=== PATIENT | female | born 1985 | race American Indian/Alaskan Native ===

== ENCOUNTER 2018-10-04 12:18 | Outpatient (CLI) | payer BC | END 2018-10-04 15:02 | disposition home or self-care (01) | LOC: LAB 12:18 → TRG 14:40 → LAB 15:02 | PROVIDERS: ATTEND Obstetrics & Gynecology | DX: O36.0130 Maternal care for anti-D [Rh] antibodies, third trimester, not applicable or unspecified (principal); Z3A.28 28 weeks gestation of pregnancy | CPT/HCPCS: 86850; 86900; 86901; J2790 ==

== ENCOUNTER 2018-12-08 15:34 | Inpatient (IN) | payer BC ==
[2018-12-08] MEDS ORDERED: MINERAL OIL PO PRN (16:54)
[2018-12-08] MEDS ORDERED: CERVIDIL VG ONE (16:54)
[2018-12-08] MEDS ORDERED: SUBLIMAZE IV PRN (16:54)
[2018-12-08] MEDS ORDERED: AMPICILLIN/NS 2 GM/100 ML 2 GM/100 ML BAG IV ONE (16:54)
[2018-12-08] MEDS ORDERED: XYLOCAINE 2% INFILTRATI ONE (16:54)
[2018-12-08] MEDS ORDERED: NARCAN 0.4 MG/1 ML IV PRN (16:54)
[2018-12-08] MEDS ORDERED: BRETHINE SUB-Q PRN (16:54)
[2018-12-08] MEDS ORDERED: BRETHINE IVP PRN (16:54)
[2018-12-08] MEDS ORDERED: STADOL IV PRN (16:54)
[2018-12-08] MEDS ORDERED: ZOFRAN IV PRN (16:54)
[2018-12-08] MEDS ORDERED: PITOCin/NS 20 UNIT/1000ML DRIP 20 UNITS/1,000 ML BAG IV SCH (17:00)
[2018-12-08 17:14] LABS: Hematocrit 34.1 % (30.3-42.9); Hemoglobin 11.4 gm/dl (10.1-14.3); Mean Corpuscular HGB Conc 33 % (30-34); Mean Corpuscular Volume 87 fl (79-97); Platelet Count 273 K/mm3 (140-440); Red Blood Count 3.94 M/mm3 (3.65-5.03); Red Cell Distribution Width 16.4 % (13.2-15.2)
[2018-12-08 17:25] LABS: Bacteria,Urine 3+ /HPF (Negative); Bilirubin,Urine NEG (Negative); Blood,Urine NEG (Negative); Color,Urine Yellow (Yellow); Hyaline Casts,Urine 3 /LPF; Mucus,Urine 2+ /HPF; Urobilinogen,Urine < 2.0 mg/dL (<2.0)
[2018-12-08 17:32] LABS: Alanine Aminotransferase 11 units/L (7-56)
--- NOTE | 2018-12-08 17:37 | History and Physical Report ---
History of Present Illness Date of examination: 12/08/18 Chief complaint: sent from clinic History of present illness: Pt is a 33 year old female primigravida GISELLA Past History Past Medical History: other (obesity ) Past Surgical History: no surgical history [employer] History: fibroids, herpes Family/Genetic History: hypertension Social history: - Obstetrical History Expected Date of Delivery: 12/22/18 Actual Gestation: 38 Week(s) 1 Day(s) : 1 Medications and Allergies Allergies Allergy/AdvReac Type Severity Reaction Status Date / Time quinine AdvReac Severe Itching Verified 11/23/18 16:05 Active Meds: Active Medications Butorphanol Tartrate (Stadol) 2 mg IV Q2H PRN PRN Reason: Pain , Severe (7-10) Ephedrine Sulfate (Ephedrine Sulfate) 10 mg IV Q2M PRN PRN Reason: Hypotension Fentanyl (Sublimaze) 100 mcg IV Q2H PRN PRN Reason: Labor Pain Hydralazine HCl (Apresoline) 5 mg IV Q30MIN PRN PRN Reason: Hypertension Ampicillin Sodium (Ampicillin/Ns 1 Gm/50 Ml) 1 gm in 50 mls @ 100 mls/hr IV Q4HR SIGRID; Protocol Ampicillin Sodium (Polycillin/Ns 2 Gm/100 Ml) 2 gm in 100 mls @ 100 mls/hr IV ONCE ONE; Protocol Stop: 12/08/18 17:53 Lactated Ringer's (Lactated Ringers) 1,000 mls @ 125 mls/hr IV DIRECT SIGRID Oxytocin/Sodium Chloride (Pitocin/Ns 20 Unit/1000ml Drip) 20 units in 1,000 mls @ 125 mls/hr IV DIRECT SIGRID Mineral Oil (Mineral Oil) 30 ml PO QHS PRN PRN Reason: Constipation Naloxone HCl (Narcan 0.4 Mg/1 Ml) 0.1 mg IV Q2MIN PRN PRN Reason: Res Rate </= 8 or 02 SAT < 92% Ondansetron HCl (Zofran) 4 mg IV Q8H PRN PRN Reason: Nausea And Vomiting Terbutaline Sulfate (Brethine) 0.25 mg SUB-Q ONCE PRN PRN Reason: Hyperstimulation/Hypertonicity Terbutaline Sulfate (Brethine) 0.25 mg IVP ONCE PRN PRN Reason: Hyperstimulation/Hypertonicity Review of Systems All systems: negative - Vital Signs Vital signs: Vital Signs Pulse BP 86 158/110 12/08/18 16:32 12/08/18 16:32 Temp Pulse Resp BP Pulse Ox 97.7 F 78 20 137/89 12/08/18 16:37 12/08/18 17:32 12/08/18 16:37 12/08/18 17:32 - Physical Exam Breasts: Positive: deferred Abdomen: Positive: soft (obese, gravid ) Genitourinary (Female): Positive: normal external genitalia Uterus: Positive: enlarged (gravid ) Extremities: Positive: normal - Obstetrical FHR: category 2 Uterine Contraction Monitor Mode: External Cervical Dilatation: 0 Results Result Diagrams: 12/08/18 16:50 12/08/18 16:50 Abnormal lab results 12/08/18 12/08/18 12/08/18 Range/Units 16:50 16:50 Unknown RDW 16.4 H (13.2-15.2) % Creatinine 0.5 L (0.7-1.2) mg/dL Urine WBC (Auto) 13.0 H (0.0-6.0) /HPF U Epithel Cells (Auto) 87.0 H (0-13.0) /HPF All other labs normal. Assessment and Plan A: IUP at 38 wks Gestational Hypertension Obesity Fibroid Uterus AMA Rh Negative GBS Negative P: Admit to labor and delivery for induction of labor PIH labs Routine intrapartum care
[2018-12-08 18:02] LABS: Uric Acid 6.1 mg/dL (3.5-7.6)
[2018-12-08] MEDS: LACTATED RINGERS 1,000 ML IV SCH (20:02)
[2018-12-08] MEDS ORDERED: AMPICILLIN/NS 1 GM/50 ML 1 GM/50 ML BAG IV SCH (20:59)
[2018-12-09] MEDS: LACTATED RINGERS 1,000 ML IV SCH ×4 (02:28→22:10)
--- NOTE | 2018-12-09 09:18 | Progress Note ---
Assessment and Plan A: IUP at 38w1d Gestational Hypertension undergoing induction of labor; s/p cervidil overnight Obesity Fibroid Uterus AMA Rh Negative GBS Negative P: Continue induction of labor with cytotec Closely monitor maternal and status Subjective - Subjective Date of service: 12/09/18 Principal diagnosis: Gestational HTN undergoing induction of labor Interval history: Pt s/p cervidil overnight. She is somewhat uncomfortable with sporadic contractions. Patient reports: no new complaints Objective - Vital Signs Vital Signs: Vital Signs - 12hr 12/08/18 12/08/18 12/08/18 21:42 22:41 23:02 Temperature Pulse Rate 81 75 76 Respiratory Rate Blood Pressure 157/102 166/101 145/94 Blood Pressure [Right] 12/08/18 12/08/18 12/09/18 23:06 23:40 00:42 Temperature 98.3 F Pulse Rate 89 82 Respiratory 18 18 Rate Blood Pressure 147/95 135/95 Blood Pressure 145/94 135/95 [Right] 12/09/18 12/09/18 12/09/18 01:40 02:40 03:40 Temperature Pulse Rate 71 75 88 Respiratory Rate Blood Pressure 134/91 156/100 144/99 Blood Pressure [Right] 12/09/18 12/09/18 12/09/18 04:40 05:40 06:19 Temperature 98.5 F Pulse Rate 79 76 75 Respiratory 18 Rate Blood Pressure 146/94 175/97 151/96 Blood Pressure 146/94 [Right] 12/09/18 12/09/18 06:40 07:40 Temperature Pulse Rate 78 73 Respiratory Rate Blood Pressure 137/99 138/97 Blood Pressure [Right] - Exam Breasts: deferred Abdomen: Present: soft (obese, gravid ) Uterus: Present: normal (gravid ) FHR: auscultation normal Uterine Contraction Monitor Mode: External Extremities: normal - Labs Labs: Abnormal Labs 12/08/18 12/08/18 12/08/18 16:50 16:50 Unknown RDW 16.4 H Creatinine 0.5 L Lactate Dehydrogenase 207 H Urine WBC (Auto) 13.0 H U Epithel Cells (Auto) 87.0 H Laboratory Results - last 24 hr 12/08/18 12/08/18 12/08/18 16:50 16:50 16:50 WBC 6.9 RBC 3.94 Hgb 11.4 Hct 34.1 MCV 87 MCH 29 MCHC 33 RDW 16.4 H Plt Count 273 Creatinine 0.5 L Estimated GFR > 60 Uric Acid 6.1 AST 17 ALT 11 Lactate Dehydrogenase 207 H Urine Color Urine Turbidity Urine pH Ur Specific [place] Urine Protein Urine Glucose (UA) Urine Ketones Urine Blood Urine Nitrite Urine Bilirubin Urine Urobilinogen Ur Leukocyte Esterase Urine WBC (Auto) Urine RBC (Auto) U Epithel Cells (Auto) Urine Bacteria (Auto) Hyaline Casts Urine Mucus Urine Yeast (Budding) Blood Type A NEGATIVE Antibody Screen Positive Antibody Identification Anti-D (Passively Aquired) 12/08/18 Unknown WBC RBC Hgb Hct MCV MCH MCHC RDW Plt Count Creatinine Estimated GFR Uric Acid AST ALT Lactate Dehydrogenase Urine Color Yellow Urine Turbidity Turbid Urine pH 6.0 Ur Specific [place] 1.023 Urine Protein 30 mg/dl Urine Glucose (UA) Neg Urine Ketones Neg Urine Blood Neg Urine Nitrite Neg Urine Bilirubin Neg Urine Urobilinogen < 2.0 Ur Leukocyte Esterase Mod Urine WBC (Auto) 13.0 H Urine RBC (Auto) 6.0 U Epithel Cells (Auto) 87.0 H Urine Bacteria (Auto) 3+ Hyaline Casts 3 Urine Mucus 2+ Urine Yeast (Budding) 2+ Blood Type Antibody Screen Antibody Identification
[2018-12-09] MEDS ORDERED: CYTOTEC VG ONE (10:00)
[2018-12-09] MEDS: CYTOTEC VG SCH ×2 (15:27→19:56)
[2018-12-09] MEDS: APRESOLINE IV PRN (19:54)
[2018-12-09] MEDS ORDERED: PEPCID IV ONE (21:16)
[2018-12-09] MEDS ORDERED: BICITRA PO ONE (21:16)
[2018-12-09] MEDS ORDERED: REGLAN IV ONE (21:16)
[2018-12-09] MEDS ORDERED: NUBAIN IV PRN (21:45)
[2018-12-09] MEDS ORDERED: NARCAN 0.4 MG/1 ML IV PRN (21:45)
[2018-12-09] MEDS ORDERED: ZOFRAN IV PRN (21:45)
[2018-12-09] MEDS ORDERED: PHENERGAN PO PRN (21:45)
[2018-12-09] MEDS ORDERED: BENADRYL IV PRN (21:45)
[2018-12-09] MEDS ORDERED: PHENERGAN PR PRN (21:45)
--- NOTE | 2018-12-09 21:50 | Anesthesia Consultation ---
Anesthesia Consult and Med Hx Date of service: 12/09/18 - Airway Anesthetic Teeth Evaluation: Chipped, Caps ROM Head & Neck: Adequate Mental/Hyoid Distance: Adequate Mallampati Class: Class III Intubation Access Assessment: Possibly Difficult - Pulmonary Exam CTA: Yes - Cardiac Exam Cardiac Exam: RRR - Pre-Operative Health Status ASA Pre-Surgery Classification: ASA3, Emergency Proposed Anesthetic Plan: Epidural, Spinal - Pulmonary Hx Smoking: No Hx Asthma: No Hx Respiratory Symptoms: No SOB: No COPD: No Home Oxygen Therapy: No Hx Pneumonia: No Hx Sleep Apnea: No - Cardiovascular System Hx Hypertension: Yes (PIH) Hx Coronary Artery Disease: No Hx Heart Attack/AMI: No Hx Angina: No Hx Percutaneous Transluminal Coronary Angioplasty (PTCA): No Hx Cardia Arrhythmia: No Hx Pacemaker: No Hx Internal Defibrillator: No Hx Heart Murmur: No Hx Peripheral Vascular Disease: No - Central Nervous System Hx Neuromuscular Disorder: No Hx Seizures: No CVA: No Hx Back Pain: No Hx Psychiatric Problems: No - Gastrointestinal Hx Ulcer: No Hx Gastroesophageal Reflux Disease: No - Endocrine Hx Renal Disease: No Hx End Stage Renal Disease: No Hx Cirrhosis: No Hx Liver Disease: No Hx Insulin Dependent Diabetes: No Hx Non-Insulin Dependent Diabetes: No Hx Thyroid Disease: No Hx Hypothyroidism: No Hx Hyperthyroidism: No - Hematic Hx Anemia: No Hx Sickle Cell Disease: No - Other Systems Hx Alcohol Use: No Hx Substance Use: No Hx Cancer: No Hx Obesity: Yes
--- NOTE | 2018-12-09 21:50 | Post Anesthesia Evaluation ---
- Post Anesthesia Evaluation Patient Participated: Yes Airway Patent: Yes Stable Respiratory Function: Yes Nausea/Vomiting: No Temp > 96.8F: Yes Pain Manageable: Yes Adequeate Hydration: Yes Anesthesia Complications: No Block Receding Appropriately: Yes Patient on Ventilator: No
[2018-12-09] MEDS ORDERED: SUBLIMAZE ONE (21:58)
[2018-12-09] MEDS ORDERED: ANCEF/STERILE WATER 2 GM/20 ML IV NR (22:00)
[2018-12-09] MEDS ORDERED: SODIUM CHLORIDE FLUSH SYRINGE 10 ML IV PRN (22:00)
[2018-12-09] MEDS ORDERED: NACL 0.9% IR ONE (22:30)
[2018-12-09] MEDS ORDERED: WATER FOR IRRIG STERILE IR ONE (22:30)
[2018-12-09] MEDS ORDERED: TORADOL ONE (23:08)
--- NOTE | 2018-12-10 00:02 | Operative Report ---
Operative Report Operative Report: Date of procedure: December 09, 2018 Preoperative diagnosis: 1) IUP at 38w1d who 2) Severe Preeclampsia 3) Obesity 4) Fibroid uterus Postoperative diagnosis: Same Procedure: Primary low transverse section Surgeon: Amelie Griffin M.D. Anesthesia: Regional Findings: 1) Viable male , Apgars 8 and 9 , weight 2766g, (6 lb 1.5 oz), cephalic in occiput posterior position. Tight nuchal cord x 1 2) Two 6-7 cm subserosal fibroids noted 2) Normal-appearing ovaries and tubes Estimated blood loss: 700 mL IV fluids:1400 mL Urine output: 100 mL, clear at the end of the procedure Drains: Mills to gravity Specimens: Placenta to pathology Complications: None. Counts correct x3 Disposition: Stable to PACU Indication for procedure: Pt is a 33 year old primigravida at 38 weeks 1 day who was initially admitted for induction of labor secondary to gestational hypertension. The patient had a sudden increase in blood pressures 160s over 100s with little change after multiple doses of hydralazine. The decision was made to proceed with delivery as the patient was dilated only 1 cm. Operation in detail: After the risks, benefits, alternatives and complications were explained to the patient she gave informed consent for the procedure. She was subsequently taken to the operating room where regional anesthesia was noted to be adequate. She was subsequently placed in the dorsal supine position with leftward tilt and prepped and draped in a normal sterile fashion. heart tones were noted to be in the 160s prior to incision. A timeout was performed. A Pfannenstiel skin incision was made with the knife and carried down to the layer of the fascia with the Bovie. The fascia was incised in the midline and the fascial incision was extended bilaterally with the Bovie. Attention was then turned to the superior aspect of the incision which was grasped with two Kochers, tented up, and dissected off the rectus muscles. Attention was then turned to the inferior aspect of the incision which was grasped with two Kochers, tented up and dissected off the rectus muscles. The rectus muscles were then in the midline and partially transected for adequate visualization. The peritoneum was then entered bluntly. The peritoneal incision was extended with good visualization of the bladder. The peritoneal incision was then stretched. An Randy self-retaining retractor was placed for visualization. The bladder blade was placed. The vesicouterine peritoneum was grasped with smooth pickups and incised with Metzenbaum scissors. Metzenbaum scissors were used to extend the incision bilaterally. The bladder flap was then created digitally and the bladder blade was replaced. A transverse incision was made in the lower uterine segment with a knife and extended bilaterally with the bandage scissors. The head was delivered without difficulty followed by shoulders and body. was bulb suctioned at delivery. The cord was clamped and cut and the was handed to NICU staff in attendance. Cord blood was collected. The placenta was then delivered manually. The uterus was then cleared of all clots and debris. The hysterotomy was then reapproximated with 0 Vicryl in a running locked fashion. A second layer of the same suture was used in imbricating fashion. The hysterotomy was inspected and hemostasis was noted. The Randy self-retaining retractor was removed. The gutters were irrigated and cleared of all clots and debris. The hysterotomy was again inspected and noted to be hemostatic. Surgicel was placed over the hysterotomy. An attempt was made to reapproximate the peritoneum and rectus muscles. However there was too much tension on the tissue. The fascia was reapproximated with 0 Vicryl in a running fashion. The subcutaneous tissue was reapproximated with 3-0 Vicryl in a running fashion. The skin was reapproximated with 4-0 Vicryl in a running fashion. The incision was then covered with steri strips and a pressure dressing. The procedure was then ended. The patient tolerated the procedure well and was taken to the PACU in stable condition. All instrument, lap, and needle counts were correct 3.
--- NOTE | 2018-12-10 00:02 | Procedure Note ---
OB Delivery Note - Delivery Date of Delivery: 12/10/18 Surgeon: KVNG STRANGE Estimated blood loss: other (700 mL) - Section Preop diagnosis: other (Severe Preeclampsia, worsening remote from delivery ) Postop diagnosis: same section procedure: section, primary low transverse Disposition: PACU Narrative: Please see operative report. - A at 1 minute: 8 at 5 minutes: 9 Gender: Male (2766g (6lb 1.5 oz) @ 2259 pm)
[2018-12-10] MEDS ORDERED: MAGNESIUM SULFATE 4GM/100ML 4 GM/100 ML BAG IV ONE (00:10)
[2018-12-10] MEDS ORDERED: MAGNESIUM SULFATE 40GM/1000ML 40 GM/1,000 ML BAG IV SCH (01:00)
[2018-12-10] MEDS: DILAUDID IV PRN ×5 (01:31→23:25)
[2018-12-10] MEDS: APRESOLINE IV PRN ×3 (02:18→19:46)
[2018-12-10] MEDS ORDERED: NORMODYNE IV ONE (02:52)
--- NOTE | 2018-12-10 09:17 | Progress Note ---
Assessment and Plan A/P POD0 s/p primary csec on mag-continue for 24 hrs uop appropriate cbc now mag levle added labetolol 100 mg po bid Subjective - Subjective Date of service: 12/10/18 Principal diagnosis: Gestational HTN undergoing induction of labor Patient reports: appetite normal, voiding normally, pain well controlled : doing well Objective - Vital Signs Latest vital signs: Vital Signs Temp Pulse Resp BP BP Pulse Ox 12/10/18 09:08 105 H 153/89 12/10/18 09:07 110 H 162/90 12/10/18 08:56 103 H 98 12/10/18 08:51 107 H 97 12/10/18 08:46 95 H 97 12/10/18 08:41 99 H 97 12/10/18 08:36 99 H 163/101 12/10/18 08:09 105 H 97 12/10/18 08:06 103 H 127/85 12/10/18 08:04 105 H 97 12/10/18 07:59 103 H 97 12/10/18 07:54 103 H 97 12/10/18 07:49 106 H 97 12/10/18 07:48 104 H 18 94 12/10/18 07:44 100 H 96 12/10/18 07:42 101 H 92 12/10/18 07:39 100 H 95 12/10/18 07:36 96 H 136/83 92 12/10/18 07:34 98 H 97 12/10/18 07:29 99 H 97 12/10/18 07:25 99 H 94 12/10/18 07:24 99 H 95 12/10/18 07:19 97 H 97 12/10/18 07:14 95 H 96 12/10/18 07:13 101 H 92 12/10/18 07:09 97 H 96 12/10/18 07:08 99 H 92 12/10/18 07:05 97 H 128/83 12/10/18 07:04 98 H 96 12/10/18 07:01 98 H 90 12/10/18 06:59 96 H 97 12/10/18 06:55 100 H 93 12/10/18 06:54 98 H 97 12/10/18 06:53 96 H 137/85 12/10/18 06:49 100 H 96 12/10/18 06:44 99 H 96 12/10/18 06:39 101 H 97 12/10/18 06:36 18 12/10/18 06:34 97 H 98 12/10/18 06:29 98 H 98 12/10/18 06:24 95 H 98 12/10/18 06:22 93 H 158/100 12/10/18 06:19 94 H 98 12/10/18 06:14 93 H 98 12/10/18 06:09 98 H 97 12/10/18 06:04 99 H 98 12/10/18 05:59 95 H 97 12/10/18 05:54 98 H 98 12/10/18 05:52 93 H 153/96 12/10/18 05:49 96 H 98 12/10/18 05:44 96 H 98 12/10/18 05:39 95 H 98 12/10/18 05:34 93 H 98 12/10/18 05:29 96 H 98 12/10/18 05:24 100 H 98 12/10/18 05:22 93 H 156/96 12/10/18 05:19 100 H 98 12/10/18 05:14 97 H 98 12/10/18 05:09 90 99 12/10/18 05:05 102 H 94 12/10/18 05:04 92 H 98 12/10/18 04:59 94 H 98 12/10/18 04:54 97 H 99 12/10/18 04:52 91 H 145/94 12/10/18 04:49 94 H 98 12/10/18 04:44 93 H 99 12/10/18 04:39 97 H 99 12/10/18 04:34 100 H 98 12/10/18 04:29 101 H 98 12/10/18 04:24 96 H 98 12/10/18 04:22 96 H 149/92 12/10/18 04:19 99 H 98 12/10/18 04:14 94 H 98 12/10/18 04:09 100 H 98 12/10/18 04:04 99 H 98 12/10/18 03:59 100 H 97 12/10/18 03:54 95 H 97 12/10/18 03:52 95 H 141/87 12/10/18 03:49 97 H 98 12/10/18 03:44 98 H 97 12/10/18 03:39 99 H 96 12/10/18 03:34 97 H 97 12/10/18 03:29 103 H 97 12/10/18 03:24 95 H 98 12/10/18 03:19 97 H 98 12/10/18 03:17 98 H 133/81 12/10/18 03:14 97 H 96 12/10/18 03:09 94 H 97 12/10/18 03:06 93 H 144/84 12/10/18 03:04 97 H 98 12/10/18 03:01 111 H 162/94 12/10/18 02:59 111 H 98 12/10/18 02:58 108 H 157/95 12/10/18 02:56 107 H 157/95 12/10/18 02:54 108 H 98 12/10/18 02:51 108 H 174/101 12/10/18 02:49 105 H 98 12/10/18 02:46 112 H 180/106 12/10/18 02:44 110 H 98 12/10/18 02:43 110 H 173/104 12/10/18 02:39 110 H 98 12/10/18 02:38 114 H 187/114 12/10/18 02:37 99.1 F 113 H 18 187/114 97 12/10/18 02:34 108 H 98 12/10/18 02:31 103 H 158/102 12/10/18 02:29 105 H 99 12/10/18 02:24 100 H 98 12/10/18 02:18 100 H 181/108 12/10/18 02:14 100 H 181/108 12/10/18 02:01 20 12/10/18 01:35 97.8 F 106 H 22 155/97 100 12/10/18 01:31 20 12/10/18 01:15 108 H 24 145/90 100 12/10/18 01:00 113 H 22 154/103 100 12/10/18 00:45 114 H 23 140/100 99 12/10/18 00:30 118 H 21 138/94 99 12/10/18 00:25 116 H 22 135/94 100 12/10/18 00:20 98.7 F 120 H 20 131/88 100 12/09/18 21:57 89 159/102 12/09/18 21:49 87 172/103 12/09/18 21:27 93 H 141/90 12/09/18 20:57 97 H 161/101 12/09/18 20:42 91 H 157/98 12/09/18 20:39 85 159/98 12/09/18 20:27 87 157/107 12/09/18 20:25 78 169/99 12/09/18 20:12 73 173/108 12/09/18 19:54 80 163/100 12/09/18 19:50 98.4 F 20 12/09/18 19:45 80 163/100 12/09/18 19:41 71 167/111 12/09/18 18:40 73 169/97 12/09/18 17:40 72 136/87 12/09/18 16:47 81 145/94 12/09/18 14:40 95 H 140/97 12/09/18 13:40 90 143/92 12/09/18 12:40 90 133/80 12/09/18 11:42 102 H 127/90 12/09/18 10:38 90 146/105 12/09/18 10:36 88 140/102 12/09/18 09:34 91 H 160/110 12/09/18 09:33 99 H 170/107 12/09/18 09:32 94 H 157/110 12/09/18 09:31 97 H 170/105 Intake and Output 12/09/18 12/10/18 12/10/18 23:59 07:59 15:59 Intake Total 2212.5 Output Total 100 350 Balance 2112.5 -350 Intake: IV 2212.5 Lactated Ringers 1,000 ml 812.5 @ 125 mls/hr IV DIRECT SIGRID Rx#:[id number] Output: Urine 100 350 Indwelling Catheter 250 Uretheral (Mills) 100 Other: Total, Output Amount 250 - Exam Breasts: Present: normal Cardiovascular: Present: Regular rate, Normal S1 Lungs: Present: Clear to auscultation, Normal air movement Abdomen: Present: normal appearance, soft, normal bowel sounds. Absent: distention, tenderness, guarding Vulva: both: normal Uterus: Present: normal, firm. Absent: bogginess Extremities: Present: normal Deep Tendon Reflex Grade: Normal +2 Incision: Present: normal, dry, dressed
[2018-12-10 09:40] LABS: Basophils # (Auto) 0.1 K/mm3 (0.0-0.1); Basophils % (Auto) 0.5 % (0.0-1.8); Eosinophils % (Auto) 0.2 % (0.0-4.3); Hematocrit 32.4 % (30.3-42.9); Hemoglobin 11.1 gm/dl (10.1-14.3); Lymphocytes # (Auto) 2.1 K/mm3 (1.2-5.4); Lymphocytes % (Auto) 16.3 % (13.4-35.0); Mean Corpuscular HGB Conc 34 % (30-34); Mean Corpuscular Volume 86 fl (79-97); Monocytes % (Auto) 7.4 % (0.0-7.3); Platelet Count 303 K/mm3 (140-440); Red Blood Count 3.76 M/mm3 (3.65-5.03); Red Cell Distribution Width 16.4 % (13.2-15.2)
[2018-12-10] MEDS: NORMODYNE PO SCH ×2 (10:34→19:45)
[2018-12-10] MEDS: LACTATED RINGERS 1,000 ML IV SCH (13:29)
[2018-12-11] MEDS: DILAUDID IV PRN ×2 (08:02→16:23)
--- NOTE | 2018-12-11 10:18 | Progress Note ---
Assessment and Plan - Patient Problems (1) Gestational hypertension Current Visit: Yes Status: Acute Plan to address problem: continue to monitor closely routine post op care Subjective - Subjective Date of service: 12/11/18 Principal diagnosis: Gestational HTN undergoing induction of labor Interval history: Patient states her pain is controlled. Mills has been removed. Has ambulated in the room Patient reports: appetite normal, pain well controlled, no flatus : doing well Objective - Vital Signs Latest vital signs: Vital Signs Temp Pulse Resp BP BP Pulse Ox 12/11/18 08:36 99.6 F 108 H 18 144/97 95 12/11/18 04:18 99.1 F 99 H 16 143/102 94 12/11/18 01:17 99.1 F 103 H 16 140/94 95 12/11/18 00:23 101 H 148/95 12/10/18 23:53 104 H 135/91 12/10/18 23:25 16 12/10/18 23:23 100 H 152/101 12/10/18 22:53 101 H 150/97 12/10/18 22:23 100 H 155/99 12/10/18 21:53 100 H 162/99 12/10/18 21:23 102 H 164/104 12/10/18 20:45 102 H 160/100 12/10/18 20:35 104 H 161/102 12/10/18 20:25 105 H 163/104 12/10/18 20:15 102 H 158/101 12/10/18 20:05 100 H 154/99 12/10/18 19:55 100 H 159/100 12/10/18 19:46 93 H 176/110 12/10/18 19:45 93 H 164/104 12/10/18 19:35 93 H 176/110 12/10/18 19:22 88 169/108 12/10/18 19:16 90 182/107 12/10/18 19:10 90 182/107 12/10/18 19:07 91 H 177/108 12/10/18 18:36 88 163/98 12/10/18 18:06 86 156/98 12/10/18 17:36 92 H 144/93 12/10/18 17:08 97.7 F 92 H 160/101 12/10/18 17:01 18 12/10/18 16:50 93 H 160/106 12/10/18 16:49 92 H 158/102 12/10/18 16:36 96 H 146/92 12/10/18 16:06 93 H 136/84 12/10/18 15:36 101 H 143/89 12/10/18 15:06 93 H 145/92 12/10/18 14:36 99 H 138/83 12/10/18 14:06 101 H 143/89 12/10/18 13:36 99 H 137/85 12/10/18 13:06 107 H 133/77 12/10/18 12:36 99 H 135/84 12/10/18 12:19 98.3 F 18 100 12/10/18 12:15 106 H 126/79 12/10/18 12:06 105 H 136/84 12/10/18 11:36 100 H 139/86 12/10/18 11:07 107 H 152/89 12/10/18 10:36 100 H 157/95 12/10/18 10:35 109 H 161/95 12/10/18 10:34 109 H 161/95 Intake and Output 12/10/18 12/11/18 12/11/18 22:59 06:59 14:59 Intake Total 839.583 Output Total 2600 700 Balance -2600 139.583 Intake: IV 539.583 MAGNESIUM SULFATE 40GM/ 539.583 1000ML 40 gm In 1,000 ml @ 1 GM/HR 25 mls/hr IV DIRECT SIGRID Rx#:[id number] Intake, Free Water 300 Output: Urine 2600 700 Indwelling Catheter 2600 200 Void 500 Other: Total, Output Amount 700 500 # Voids Void 1 - Exam Uterus: Present: normal Incision: Present: dressed - Labs Labs: Abnormal lab results 12/10/18 12/10/18 12/11/18 Range/Units 13:46 17:12 00:26 Magnesium 4.60 H 5.10 H 4.40 H (1.7-2.3) mg/dL 12/11/18 Range/Units 05:53 Magnesium 3.20 H (1.7-2.3) mg/dL
[2018-12-11] MEDS: NORMODYNE PO SCH ×2 (16:13→22:00)
[2018-12-11] MEDS ORDERED: PERCOCET 5/325 PO PRN (16:49)
[2018-12-11] MEDS: IBUPROFEN PO SCH (17:06)
[2018-12-12] MEDS: IBUPROFEN PO SCH ×6 (04:41→23:04)
[2018-12-12] MEDS: NORMODYNE PO SCH ×3 (04:43→23:04)
--- NOTE | 2018-12-12 09:42 | Discharge Summary ---
Providers - Providers Date of Admission: 12/08/18 19:04 Date of discharge: 12/13/18 Attending physician: KVNG STRANGE Primary care physician: KVNG STRANGE Hospitalization Reason for admission: active labor Delivery: Procedure: section, primary low transverse Discharge diagnosis: IUP at term delivered [place] baby: male Hospital course: Patient admitted for induction for elevated blood pressures. Had worsening of blood pressures during her intrapartum without cervical change. Primary was performed. Patient received magnesium . Remainer of uncomplicated. Condition at discharge: Good Disposition: DC-01 TO HOME OR SELFCARE - Discharge Diagnoses (1) Gestational hypertension Status: Acute Plan - Discharge Medications Prescriptions: Docusate Sodium [Colace] 100 mg PO BID PRN #60 capsule PRN Reason: Constipation Ibuprofen [Motrin] 800 mg PO Q8HR PRN #60 tablet PRN Reason: Pain, Mild (1-3) oxyCODONE /ACETAMINOPHEN [Percocet 5/325] 1 tab PO Q6HR PRN #30 tablet PRN Reason: Pain - Provider Discharge Summary Activity: no sex for 6 weeks, no heavy lifting 4 weeks, no strenuous exercise Diet: routine Instructions: routine Additional instructions: [] Smoking cessation referral if applicable(refer to patient education folder for contact #) [] Refer to [facility] Booklet Call your doctor immediately for: * Fever > 100.5 * Heavy vaginal bleeding ( >1 pad per hour) * Severe persistent headache * Shortness of breath * Reddened, hot, painful area to leg or breast * Drainage or odor from incision. * Keep incision clean and dry at all times and follow doctor's instructions regarding bathing/showering schedule appointment in 2 weeks for blood pressure and incision check - Follow up plan
--- NOTE | 2018-12-12 09:42 | Progress Note ---
Assessment and Plan - Patient Problems (1) Gestational hypertension Current Visit: Yes Status: Acute Plan to address problem: patient doing well discharge in am Subjective - Subjective Date of service: 12/12/18 Principal diagnosis: Gestational HTN undergoing induction of labor Interval history: Patient is doing well. Pain is controlled. She is tolerating a regular diet without difficulty. Voiding spontaneously. Patient reports: appetite normal, voiding normally, pain well controlled : doing well Objective - Vital Signs Latest vital signs: Vital Signs Temp Pulse Resp BP BP Pulse Ox 12/12/18 07:22 97.8 F 82 18 141/89 12/12/18 04:43 96 H 148/100 12/12/18 00:42 98.1 F 93 H 20 133/81 98 12/11/18 22:00 0 L 0/0 12/11/18 21:58 98 H 131/96 12/11/18 16:13 148 H 148/92 12/11/18 15:06 98.1 F 104 H 18 141/92 Intake and Output 12/11/18 12/12/18 12/12/18 22:59 06:59 14:59 Intake Total 360 480 Balance 360 480 Intake: Oral 360 480 Other: Total, Intake Amount 360 480 - Exam Abdomen: Present: soft Uterus: Present: firm Incision: Present: normal
[2018-12-13] MEDS: IBUPROFEN PO SCH ×2 (05:00→12:45)
[2018-12-13] MEDS: NORMODYNE PO SCH (10:34)
[2018-12-14 18:00] VITALS: BP 146/90
== END 2018-12-13 14:45 | disposition home or self-care (01) | DRG 788 ==
LOC: TRG 15:34 → LD 19:04 → TRG 19:04 → LD 12-09 22:16 → OB 12-11 01:38
PROVIDERS: ADMIT Obstetrics & Gynecology; ATTEND Obstetrics & Gynecology
PROC: 10D00Z1 Extraction of Products of Conception, Low, Open Approach (ICD-10-PCS; principal; 2018-12-09)
PROC: 3E0P7VZ Introduction of Hormone into Female Reproductive, Via Natural or Artificial Opening (ICD-10-PCS; 2018-12-09)
PROC: 3E0234Z Introduction of Serum, Toxoid and Vaccine into Muscle, Percutaneous Approach (ICD-10-PCS; 2018-12-12)
DX: O14.14 Severe pre-eclampsia complicating childbirth (principal); O99.214 Obesity complicating childbirth; O34.13 Maternal care for benign tumor of corpus uteri, third trimester; O69.1XX0 Labor and delivery complicated by cord around neck, with compression, not applicable or unspecified; O64.0XX0 Obstructed labor due to incomplete rotation of fetal head, not applicable or unspecified; O26.893 Other specified pregnancy related conditions, third trimester; D25.9 Leiomyoma of uterus, unspecified; Z3A.38 38 weeks gestation of pregnancy; Z37.0 Single live birth; Z67.11 Type A blood, Rh negative
CPT/HCPCS: 36415; 59025; 81001; 82565; 83615; 83735; 84450; 84460; 84550; 85025; 85027; 85461; 86592; 86850; 86870; 86900; 86901; 87086; 88307; 96360; 96361; 96365; 96366; 96367; 96368; 96372; 96374; 96376; G0378; J0360; J0690; J1170; J1885; J2405; J2590; J2765; J2790; J3010; J3475; J7120

== ENCOUNTER 2022-03-19 07:29 | Inpatient (IN) | payer BC, MEDICAID ==
[2022-03-19] MEDS ORDERED: LACTATED RINGERS 1,000 ML IV ONE (10:40)
--- NOTE | 2022-03-19 11:22 | History and Physical Report ---
History of Present Illness Date of examination: 03/19/22 Date of admission: March 19, 2022 Chief complaint: Leakage of fluid History of present illness: 36y/o @ 36+2 weeks presents with gross rupture of membranes and regular uterine contractions. The patient course is complicated by advanced maternal age, previous , history preeclampsia, and gestational diabetes. GBS status is unknown Past History Past Medical History: other (gestational diabetes) Past Surgical History: section Social history: - Obstetrical History Expected Date of Delivery: 04/14/22 Actual Gestation: 36 Week(s) 2 Day(s) : 2 Para: 1 Hx # Term Pregnancies: 1 Number of Pregnancies: 0 Spontaneous Abortions: 0 Induced : 0 Number of Living Children: 1 Medications and Allergies Allergies Allergy/AdvReac Type Severity Reaction Status Date / Time quinine AdvReac Severe Itching Verified 03/19/22 08:46 Home Medications Medication Instructions Recorded Confirmed Last Taken Type Docusate Sodium [Colace] 100 mg PO BID PRN #60 capsule 12/12/18 Unknown Rx Ibuprofen [Motrin] 800 mg PO Q8HR PRN #60 tablet 12/12/18 Unknown Rx oxyCODONE /ACETAMINOPHEN [Percocet 1 tab PO Q6HR PRN #30 tablet 12/12/18 Unknown Rx 5/325] Active Meds: Active Medications Lactated Ringer's (Lactated Ringers) 1,000 mls @ 999 mls/hr IV BOLUS ONE Stop: 03/19/22 11:40 Review of Systems All systems: negative Genitourinary: leakage of fluid, contractions - Vital Signs Vital signs: Vital Signs Pulse Pulse Ox 112 H 100 03/19/22 08:14 03/19/22 08:14 Temp Pulse Resp BP Pulse Ox 91 H 137/81 100 03/19/22 11:20 03/19/22 11:10 03/19/22 11:20 - Physical Exam Breasts: Positive: deferred Cardiovascular: Regular rate Lungs: Positive: Clear to auscultation Abdomen: Positive: normal appearance - Obstetrical Cervical Dilatation: 2 Results Result Diagrams: 03/19/22 11:22 03/19/22 11:22 Abnormal lab results 03/19/22 Range/Units 08:30 Membranes Rupture Positive A (Negative) All other labs normal. Assessment and Plan - Patient Problems (1) Spontaneous rupture of amniotic membranes Current Visit: Yes Status: Acute Plan to address problem: admit for a repeat delivery (2) Previous section Current Visit: Yes Status: Acute
[2022-03-19 11:52] LABS: Basophils % (Auto) 0.1 % (0.0-1.8); Eosinophils % (Auto) 0.2 % (0.0-4.3); Hematocrit 33.4 % (30.3-42.9); Lymphocytes # (Auto) 1.6 K/mm3 (1.2-5.4); Lymphocytes % (Auto) 13.4 % (13.4-35.0); Mean Corpuscular HGB Conc 33 % (30-34); Mean Corpuscular Volume 87 fl (79-97); Monocytes # (Auto) 0.7 K/mm3 (0.0-0.8); Monocytes % (Auto) 6.2 % (0.0-7.3); Platelet Count 282 K/mm3 (140-440); Red Blood Count 3.85 M/mm3 (3.65-5.03); Red Cell Distribution Width 14.8 % (13.2-15.2)
[2022-03-19] MEDS ORDERED: LACTATED RINGERS 1,000 ML IV SCH (12:00)
[2022-03-19] MEDS ORDERED: ceFAZolin/Water 2 GM/20 ML 2 GM/20 ML SYRINGE IV NR (12:00)
[2022-03-19] MEDS ORDERED: BICITRA ORAL LIQD 30ML PO ONE ×2 (12:00→17:00)
[2022-03-19] MEDS ORDERED: FAMOTIDINE 20 MG/2 ML INJ IV ONE ×2 (12:00→17:00)
[2022-03-19] MEDS ORDERED: OXYTOCIN DRIP 30 UNITS/500 ML BAG IV SCH ×2 (12:00→17:00)
[2022-03-19 12:11] LABS: Alanine Aminotransferase 9 units/L (7-56); Uric Acid 3.3 mg/dL (3.5-7.6)
[2022-03-19] MEDS ORDERED: METOCLOPRAMIDE 10 MG/2 ML INJ IV ONE ×2 (12:30→17:00)
[2022-03-19 12:50] LABS: Mucus,Urine 3+ /HPF
[2022-03-19 13:03] LABS: RBC,Urine > 182.0 /HPF (0.0-6.0); WBC,Urine > 182.0 /HPF (0.0-6.0)
[2022-03-19 13:04] LABS: Bilirubin,Urine Negative (Negative); Blood,Urine Large (Negative); Color,Urine Amber (Yellow); Urobilinogen,Urine < 2.0 mg/dL (<2.0)
[2022-03-19] MEDS ORDERED: NALOXONE 0.4 MG/1 ML INJ IV PRN ×2 (16:35→18:51)
[2022-03-19] MEDS ORDERED: MORPHINE 4 MG/1 ML INJ IV PRN ×2 (16:35→18:51)
[2022-03-19] MEDS ORDERED: ACETAMINOPHEN 325 MG TAB PO PRN (16:35)
[2022-03-19] MEDS ORDERED: ONDANSETRON 4 MG/2 ML INJ IV PRN ×2 (16:35→18:51)
[2022-03-19] MEDS ORDERED: KETOROLAC 30 MG/1 ML INJ IV PRN (16:35)
[2022-03-19] MEDS ORDERED: LANOLIN/ZINC/DIMETHICONE (LANSINOH) 7 GM TP PRN (16:35)
[2022-03-19] MEDS ORDERED: WITCH HAZEL/ GLYCERIN PAD TP PRN (16:35)
--- NOTE | 2022-03-19 16:43 | Procedure Note ---
OB Delivery Note - Delivery Date of Delivery: 03/19/22 Surgeon: AARON DONIS Estimated blood loss: other (757ml) - Section Preop diagnosis: repeat Postop diagnosis: same section procedure: section, repeat low transverse Disposition: PACU Complications: none - Infant A Gender: Female (Weight 6lbs 2oz)
[2022-03-19] MEDS ORDERED: propofoL 200 MG/20 ML VIAL IV ONE ×2 (17:27→17:41)
[2022-03-19] MEDS ORDERED: MIDAZOLAM 2 MG/2 ML INJ ONE (17:28)
[2022-03-19] MEDS ORDERED: KETAMINE/STERILE WATER 50 MG/ML SYRINGE ONE (17:28)
[2022-03-19] MEDS ORDERED: SUCCINYLCHOLINE CHLORIDE 200 MG/10 ML INJ MDV ONE (17:39)
[2022-03-19] MEDS ORDERED: ROCURONIUM 50 MG/5 ML INJ IV ONE (17:50)
[2022-03-19] MEDS ORDERED: SUGAMMADEX SODIUM 200 MG/2 ML VIAL IV ONE (17:59)
[2022-03-19] MEDS ORDERED: BUPIVACAINE/PF (0.5%) 5 MG/1 ML 30 ML VIAL INFILTRATI ONE (18:31)
[2022-03-19] MEDS ORDERED: SODIUM CHLORIDE 0.9% 100 ML ONE (18:31)
[2022-03-19] MEDS ORDERED: HYDROmorphone 1 MG/1 ML INJ IV PRN ×2 (18:51)
[2022-03-19] MEDS ORDERED: PROMETHAZINE 25 MG RECT SUPP PR PRN (18:51)
[2022-03-19] MEDS ORDERED: PROMETHAZINE 25 MG TAB PO PRN (18:51)
--- NOTE | 2022-03-19 18:53 | Operative Report ---
Operative Report Operative Report: Date of surgery: March 19, 2022 Preoperative diagnosis: at 36+2 weeks; premature rupture mem branes; previous delivery Postoperative diagnosis: Same as above Procedure: Repeat low transverse delivery and lysis of adhesions Surgeon: Trini Patton M.D. Anesthesia: General endotracheal anesthesia Estimated blood loss: 757 mL IV fluids: 1700 mL Findings: Liveborn female weight 6 pounds 2 ounces Indications: 36-year-old -0-0-1 at 36+2 weeks who presents with premature rupture membranes approximately 2 days ago. The patient has a history of previous delivery. Procedure: The patient was taken to the operating room and given general endotracheal anesthesia without complication secondary to inability to place the spinal anesthesia. She was prepped and draped in a normal sterile fashion. A Pfannenstiel skin incision was made down to layer the fascia which was nicked in the midline extended laterally with the Bovie cautery. The superior aspect of the rectus fascia was grasped with Aquilino clamps x2 and the rectus muscles off sharply. This was done in inferior fashion as well. The rectus muscle midline and peritoneum entered bluntly. There were multiple omental adhesions to the anterior abdominal wall for which lysis of adhesion had to be performed. The rectus abdominal muscle had to be transected in order to facilitate placement of the Randy retractor. An Randy retractor was then inserted. A bladder blade was placed. The vesicouterine peritoneum was then entered sharply with Metzenbaum scissors. A bladder flap was created digitally. A low transverse uterine incision was then made and extended digitally. There was meconium stained fluid upon entry into the uterine cavity. The head was delivered through the incision with fundal pressure. The cord was clamped and cut x2 and was passed off to pediatrics. The placenta was then manually extracted. The uterus was cleared of clots and debris. The uterine incision was then closed in a running locked fashion with 0 Vicryl additional imbricating stitch was applied for 2 layer closure. The posterior cul-de-sac was then copiously irrigated. the gutters were then irrigated. The Randy retractor was then removed. The peritoneum could not adequately be reapproximated. The fascia was then closed with 0 Vicryl in a running fashion. The skin was then reapproximated with 3-0 Monocryl on a Dain needle subcuticular fashion. Steri-Strips to place across the incision and a Crede procedures performed at the end of the surgery. A pressure dressing was applied to the incision. The surgery productive of a liveborn female with Apgars of weight of 6 pounds 2 ounces. The patient was taken to the recovery room in stable condition. All sponge laps and needle counts correct x2.
--- NOTE | 2022-03-19 19:19 | Anesthesia Consultation ---
Anesthesia Consult and Med Hx Date of service: 03/19/22 - Airway Anesthetic Teeth Evaluation: Good ROM Head & Neck: Adequate Mental/Hyoid Distance: Adequate Mallampati Class: Class II Intubation Access Assessment: Probably Good - Pulmonary Exam CTA: Yes - Cardiac Exam Cardiac Exam: RRR - Pre-Operative Health Status ASA Pre-Surgery Classification: ASA2 Proposed Anesthetic Plan: General Nerve Block: Juno Tap - Pulmonary Hx Smoking: No Hx Asthma: No Hx Respiratory Symptoms: No SOB: No COPD: No Hx Pneumonia: No Hx Sleep Apnea: No - Cardiovascular System Hx Hypertension: No Hx Coronary Artery Disease: No Hx Heart Attack/AMI: No Hx Angina: No Hx Percutaneous Transluminal Coronary Angioplasty (PTCA): No Hx Cardia Arrhythmia: No Hx Pacemaker: No Hx Internal Defibrillator: No Hx Valvular Heart Disease: No Hx Heart Murmur: No Hx Peripheral Vascular Disease: No - Central Nervous System Hx Neuromuscular Disorder: No Hx Seizures: No CVA: No Hx Back Pain: No Hx Psychiatric Problems: No - Gastrointestinal Hx Ulcer: No Hx Gastroesophageal Reflux Disease: No - Endocrine Hx Renal Disease: No Hx End Stage Renal Disease: No Hx Cirrhosis: No Hx Liver Disease: No Hx Insulin Dependent Diabetes: No Hx Non-Insulin Dependent Diabetes: No Hx Thyroid Disease: No Hx Hypothyroidism: No Hx Hyperthyroidism: No - Hematic Hx Anemia: No Hx Sickle Cell Disease: No - Other Systems Hx Alcohol Use: No Hx Substance Use: No Hx Cancer: No Hx Obesity: Yes
--- NOTE | 2022-03-19 19:19 | Anesthesia Day of Surgery ---
Anesthesia Day of Surgery - Day of Surgery Patient Examined: Yes Patient H&P Reviewed: Yes Patient is NPO: Yes Beta Blockers: No Cardiac Clearance: No Pulmonary Clearance: No Cam's Test: N/A
--- NOTE | 2022-03-19 19:24 | Progress Note ---
Spinal Anesthesia Block - Spinal Anesthesia Block Start Time: 16:45 Stop Time: 17:40 Performed by:: ALEXA GARCÍA Procedure: Several Attempts were made to place a spinal as well as an epidural by myself and Anup Muhammad CRNA and all attempts were unsuccessful. The decision was made to convert to a general.
--- NOTE | 2022-03-19 19:25 | Progress Note ---
Regional Anesthesia Block - Regional Anesthesia Block Start Time: 18:55 Stop Time: 19:05 Performed By:: ALEXA GARCÍA Procedure: During the pre-op interview the patient agreed to and signed a consent for a TAP block for post surgical pain management. After her C/S was completed a time out was performed prior to the start of the procedure. The Trans Abdominal Plane was identified bilaterally via ultrasound. The skin was prepped bilaterally with chlorhexidine and a 22g stimuplex needle was advanced to the area between the internal oblique muscle and the trans abdominal plane. Marcaine 0.25% 30mlwas injected under ultrasound guidance on the left and right side. Negative aspiration every 5mL, There was no change in the patients heart rate or rhythm and the patient tolerated the procedure well. No apparent complications were observed.
[2022-03-19 19:26] LABS: Cord Art Bld Carbxyhemoglobin 1.4; Cord Art Bld Methemoglobin 1.1 mmHg; Cord Arterial Blood HCO3 23.7; Cord Arterial Oxyhemoglobin 67.8
[2022-03-19] MEDS ORDERED: fentaNYL-BUPIV 2 MCG/ML-0.125% 200 MCG/100 ML BAG EPIDURAL SCH (20:00)
[2022-03-19] MEDS: D5W/LACTATED RINGERS 1,000 ML IV SCH (22:07)
[2022-03-20] MEDS: D5W/LACTATED RINGERS 1,000 ML IV SCH (05:23)
[2022-03-20 08:20] LABS: Hematocrit 32.5 % (30.3-42.9); Hemoglobin 10.4 gm/dl (10.1-14.3)
--- NOTE | 2022-03-20 08:36 | Progress Note ---
Assessment and Plan - Patient Problems (1) Status post repeat low transverse section Current Visit: Yes Status: Acute Plan to address problem: Continue routine PP orders Keep dressing clean and dry, remove on POD#2 Anticipate discharge home in 24-48 hrs if stable (2) Elevated blood pressure reading Current Visit: Yes Status: Acute Plan to address problem: Labetalol 100 mg po BID initiated Continue to monitor B/P closely (3) Morbid obesity Current Visit: Yes Status: Acute Subjective - Subjective Date of service: 03/20/22 Principal diagnosis: S/P repeat C/S; POD#1; Elevated B/P Interval history: 36y/o @ 36+2 weeks presents with gross rupture of membranes and regular uterine contractions. The patient course is complicated by advanced maternal age, previous , history preeclampsia, and gestational diabetes. GBS status is unknown. Delivered viable female via C/S. PP course has been complicated by elevated B/P readings, Labetalol initiated. Patient reports: appetite normal (clear liquids), voiding normally (catherter in place), pain well controlled (with medications), no flatus, no bowel movement, no ambulating normally (bedrest, mechanical compression hose in place) [place]: in NICU Objective - Vital Signs Latest vital signs: Vital Signs Temp Pulse Resp BP BP Pulse Ox Pulse Ox 03/20/22 07:30 97 H 98 03/20/22 07:26 98.0 F 18 113/78 03/20/22 05:26 98.8 F 116 H 20 146/99 96 03/20/22 05:22 18 03/20/22 01:31 18 03/20/22 01:30 18 03/20/22 01:15 100.6 F H 106 H 22 137/90 97 03/19/22 20:55 99 03/19/22 20:53 97.6 F 90 18 142/88 99 03/19/22 19:44 97.9 F 93 H 23 03/19/22 19:35 83 25 H 147/84 96 03/19/22 19:20 96 H 27 H 139/94 97 03/19/22 19:15 97 H 25 H 138/108 03/19/22 19:05 89 18 133/91 03/19/22 18:55 94 H 18 133/93 98 03/19/22 18:50 88 18 122/88 98 03/19/22 18:49 98.4 F 89 18 123/81 98 03/19/22 16:18 110 H 125/86 03/19/22 14:35 99 H 98 03/19/22 14:30 96 H 99 03/19/22 14:25 94 H 133/81 99 03/19/22 14:20 96 H 100 03/19/22 14:15 100 H 100 03/19/22 14:11 96 H 142/82 03/19/22 14:10 101 H 99 03/19/22 14:05 100 H 100 03/19/22 14:00 103 H 99 03/19/22 13:55 100 H 131/83 99 03/19/22 13:50 100 H 98 03/19/22 13:45 98 H 99 03/19/22 13:40 98 H 119/73 99 03/19/22 13:35 97 H 99 03/19/22 13:30 93 H 99 03/19/22 13:25 98 H 133/74 100 03/19/22 13:20 99 H 98 03/19/22 13:15 105 H 98 03/19/22 13:10 103 H 142/70 99 03/19/22 13:05 97 H 99 03/19/22 13:00 91 H 100 03/19/22 12:56 117 H 181/88 91 03/19/22 12:55 98 H 99 03/19/22 12:50 93 H 100 03/19/22 12:45 103 H 100 03/19/22 12:43 119 H 88 03/19/22 12:41 96 H 133/81 03/19/22 12:40 98 H 132/82 100 03/19/22 12:35 94 H 100 03/19/22 12:30 93 H 100 03/19/22 12:25 93 H 136/84 100 03/19/22 12:24 99 03/19/22 12:20 103 H 100 03/19/22 12:15 93 H 99 03/19/22 12:10 96 H 123/81 98 03/19/22 12:05 95 H 100 03/19/22 12:00 99 H 99 03/19/22 11:55 112 H 120/73 99 03/19/22 11:45 101 H 100 03/19/22 11:40 97 H 137/83 98 03/19/22 11:35 99 H 99 03/19/22 11:30 99.5 F 92 H 98 03/19/22 11:25 97 H 135/85 99 03/19/22 11:20 91 H 100 03/19/22 11:15 95 H 100 03/19/22 11:10 93 H 137/81 100 03/19/22 10:50 92 H 100 03/19/22 10:45 95 H 100 03/19/22 10:40 99 H 99 03/19/22 10:36 110 H 128/92 03/19/22 10:35 108 H 100 03/19/22 10:30 92 H 100 03/19/22 10:25 96 H 100 03/19/22 10:20 92 H 98 03/19/22 10:15 95 H 97 03/19/22 10:10 91 H 99 03/19/22 10:05 92 H 98 03/19/22 10:00 93 H 99 03/19/22 09:55 99 H 99 03/19/22 09:50 98 H 100 03/19/22 09:44 93 H 98 03/19/22 09:39 98 H 98 03/19/22 09:34 96 H 99 03/19/22 09:29 95 H 99 03/19/22 09:24 94 H 98 03/19/22 09:19 94 H 98 03/19/22 09:14 95 H 99 03/19/22 09:09 97 H 99 03/19/22 09:04 99 H 100 03/19/22 08:59 99 H 98 03/19/22 08:54 100 H 99 03/19/22 08:49 94 H 97 03/19/22 08:45 99.7 F H 22 03/19/22 08:44 87 100 03/19/22 08:39 97 H 100 Intake and Output 03/19/22 03/20/22 03/20/22 23:59 07:59 15:59 Intake Total 1800 1268.333 Output Total 200 Balance 1600 1268.333 Intake: IV 1800 908.333 D5lr 1,000 ml @ 125 mls/ 908.333 hr IV DIRECT SIGRID Rx#: [id number] Intake, Free Water 360 Output: Urine 200 - Exam Breasts: Present: normal Cardiovascular: Present: Regular rate Lungs: Present: Normal air movement Abdomen: Present: soft, tenderness Uterus: Present: firm, fundal height below umbilicus (U-2) Extremities: Present: edema Deep Tendon Reflex Grade: Normal +2 Incision: Present: dressed (no shadow drainage or bleeding noted) - Labs Labs: Abnormal lab results 03/19/22 03/19/22 03/19/22 Range/Units 08:30 11:22 11:22 WBC 11.7 H (4.5-11.0) K/mm3 Seg Neutrophils % 80.1 H (40.0-70.0) % Seg Neutrophils # 9.4 H (1.8-7.7) K/mm3 Creatinine 0.4 L (0.6-1.2) mg/dL Uric Acid 3.3 L (3.5-7.6) mg/dL Urine Blood (Negative) Urine WBC (Auto) (0.0-6.0) /HPF U Epithel Cells (Auto) (0-13.0) /HPF Membranes Rupture Positive A (Negative) 03/19/22 Range/Units 11:55 WBC (4.5-11.0) K/mm3 Seg Neutrophils % (40.0-70.0) % Seg Neutrophils # (1.8-7.7) K/mm3 Creatinine (0.6-1.2) mg/dL Uric Acid (3.5-7.6) mg/dL Urine Blood Large A (Negative) Urine WBC (Auto) > 182.0 H (0.0-6.0) /HPF U Epithel Cells (Auto) 32.0 H (0-13.0) /HPF Membranes Rupture (Negative)
[2022-03-20] MEDS: oxyCODONE /ACETAMINOPHEN 5-325MG TAB PO PRN ×2 (12:00→17:09)
[2022-03-20] MEDS: IBUPROFEN 600 MG TAB PO PRN (22:04)
[2022-03-21] MEDS: oxyCODONE /ACETAMINOPHEN 5-325MG TAB PO PRN ×3 (06:12→20:13)
--- NOTE | 2022-03-21 08:17 | Progress Note ---
Assessment and Plan A: POD#2 s/p repeat section at 36 wks secondary to PPROM cHTN Obesity P: Routine postop care Anticipate discharge tomorrow Subjective - Subjective Date of service: 03/21/22 Principal diagnosis: S/P repeat C/S; POD#2; Chronic HTN Interval history: Pt without complaints. Passing minimal flatus. No nausea. Patient reports: appetite normal, voiding normally, pain well controlled, flatus, ambulating normally, no bowel movement : in NICU Objective - Vital Signs Latest vital signs: Vital Signs Temp Pulse Resp BP BP Pulse Ox Pulse Ox 03/21/22 00:30 98.7 F 67 18 114/79 03/20/22 22:00 90 126/85 03/20/22 21:50 99 03/20/22 20:14 98.0 F 105 H 18 128/92 99 03/20/22 15:16 97.8 F 89 20 105/79 96 03/20/22 11:40 98.4 F 101 H 22 118/83 100 03/20/22 11:39 98.4 F 22 118/83 03/20/22 10:05 101 H 118/83 03/20/22 08:28 98 Intake and Output 03/20/22 03/21/22 03/21/22 22:59 06:59 14:59 Intake Total 240 300 Output Total 500 Balance -260 300 Intake: Oral 240 Intake, Free Water 300 Output: Urine 500 Void 500 Other: Total, Intake Amount 240 Total, Output Amount 500 # Voids Void 2 1 - Exam Breasts: Present: deferred Abdomen: Present: soft, distention (moderate ) Incision: Present: dressed
[2022-03-21] MEDS ORDERED: TETANUS,DIPH,PERTUSS(ACELL) VACCINE 0.5 ML SYRINGE IM ONE (09:00)
[2022-03-21] MEDS ORDERED: LACTULOSE 20 GM/30 ML ORAL LIQD PO PRN (20:24)
[2022-03-21] MEDS: IBUPROFEN 600 MG TAB PO PRN (22:11)
[2022-03-22] MEDS: IBUPROFEN 600 MG TAB PO PRN (06:57)
--- NOTE | 2022-03-22 10:59 | Discharge Summary ---
Providers - Providers Date of Admission: 03/19/22 07:39 Date of discharge: 03/22/22 Attending physician: AARON DONIS Primary care physician: AARON DONIS Hospitalization Reason for admission: rupture of membranes Delivery: Procedure: section, repeat low transverse Procedure details: Please see op report Incision: normal Other procedures: none complications: none Discharge diagnosis: delivery [place] baby: female Hospital course: This patient was admitted at 36 weeks with rupture of membranes. She underwent repeat section which she tolerated well. The remainder of her postoperative course was uncomplicated and she met discharge criteria on postop day #3. She will follow-up in 1 week in the office with Dr. Griffin Condition at discharge: Stable Disposition: 01 HOME / SELF CARE / HOMELESS - Discharge Diagnoses (1) GDM (gestational diabetes mellitus) Status: Acute Qualifiers: Trimester: unspecified trimester (2) Obesity Status: Acute Qualifiers: Obesity type: unspecified obesity type Obesity classification: adult class 2 (BMI 35 - 39.9) Serious obesity comorbidity presence: unspecified whether serious comorbidity present Body mass index: BMI 39.0-39.9 Qualified Code(s): E66.9 - Obesity, unspecified; Z68.39 - Body mass index [BMI] 39.0-39.9, adult (3) delivery Status: Acute (4) Previous section Status: Acute (5) Status post repeat low transverse section Status: Acute (6) Gestational hypertension Status: Acute Qualifiers: Trimester: third trimester Qualified Code(s): O13.3 - Gestational [-induced] hypertension without significant proteinuria, third trimester Plan - Discharge Medications Prescriptions: labetaloL [Labetalol 100mg TAB] 100 mg PO BID #60 Ibuprofen [Motrin] 800 mg PO Q8HR PRN #30 tablet PRN Reason: Pain, Moderate (4-6) oxyCODONE /ACETAMINOPHEN [Percocet 5/325] 1 tab PO Q6HR PRN #30 tablet PRN Reason: Pain - Provider Discharge Summary Activity: routine, no sex for 6 weeks, no heavy lifting 4 weeks, no strenuous exercise Diet: routine Instructions: routine Additional instructions: [] Smoking cessation referral if applicable(refer to patient education folder for contact #) [] Refer to [facility]'s [facility] Booklet Call your doctor immediately for: * Fever > 100.5 * Heavy vaginal bleeding ( >1 pad per hour) * Severe persistent headache * Shortness of breath * Reddened, hot, painful area to leg or breast * Drainage or odor from incision. * Keep incision clean and dry at all times and follow doctor's instructions regarding bathing/showering - Follow up plan Follow up: AARON DONIS MD [Primary Care Provider] - 7 Days
--- NOTE | 2022-03-22 10:59 | Progress Note ---
Assessment and Plan A: POD#3 s/p repeat section at 36 wks secondary to PPROM cHTN Obesity P: Discharge home with follow-up in 1 week for blood pressure check Subjective - Subjective Date of service: 03/22/22 Principal diagnosis: S/P repeat C/S; POD#3; Chronic HTN Interval history: Patient reports bowel movement overnight. She also reports that the baby was transferred to a different hospital for bowel surgery and would like to go home to be with the baby. Patient reports: appetite normal, voiding normally, pain well controlled, flatus, bowel movement, ambulating normally : transported Objective - Vital Signs Latest vital signs: Vital Signs Temp Pulse Resp BP Pulse Ox Pulse Ox 03/22/22 10:05 83 124/90 03/22/22 08:31 97.7 F 76 16 120/88 99 03/22/22 06:57 18 03/21/22 22:24 98 03/21/22 22:10 105 H 119/81 03/21/22 21:13 18 03/21/22 20:13 16 03/21/22 19:57 98.7 F 105 H 18 119/81 98 03/21/22 13:20 97.9 F 88 20 116/77 100 Intake and Output 03/21/22 03/22/22 03/22/22 22:59 06:59 14:59 Intake Total 1380 200 120 Balance 1380 200 120 Intake: Oral 600 120 Intake, Free Water 780 200 Other: Total, Intake Amount 600 120 # Voids Void 1 1 1 - Exam Breasts: Present: deferred Abdomen: Present: soft (obese ), distention (moderate ) Uterus: Present: fundal height at umbilicus Extremities: Present: edema (trace ) Incision: Present: intact
[2022-03-22 12:42] VITALS: BP 106/80
[2022-03-22] MEDS: oxyCODONE /ACETAMINOPHEN 5-325MG TAB PO PRN (13:50)
== END 2022-03-22 14:20 | disposition home or self-care (01) | DRG 786 ==
LOC: TRG 07:29 → APU 07:39 → TRG 16:37 → APU 17:03 → OB 20:38
PROVIDERS: ADMIT Obstetrics & Gynecology; ATTEND Obstetrics & Gynecology
PROC: 10D00Z1 Extraction of Products of Conception, Low, Open Approach (ICD-10-PCS; principal; 2022-03-19)
PROC: 3E0T3BZ Introduction of Anesthetic Agent into Peripheral Nerves and Plexi, Percutaneous Approach (ICD-10-PCS; 2022-03-19)
PROC: 3E0234Z Introduction of Serum, Toxoid and Vaccine into Muscle, Percutaneous Approach (ICD-10-PCS; 2022-03-21)
DX: O34.211 Maternal care for low transverse scar from previous cesarean delivery (principal); O60.14X0 Preterm labor third trimester with preterm delivery third trimester, not applicable or unspecified; O42.913 Preterm premature rupture of membranes, unspecified as to length of time between rupture and onset of labor, third trimester; O77.0 Labor and delivery complicated by meconium in amniotic fluid; Z20.822 Contact with and (suspected) exposure to COVID-19; Z3A.36 36 weeks gestation of pregnancy; Z37.0 Single live birth; Z23 Encounter for immunization; O42.013 Preterm premature rupture of membranes, onset of labor within 24 hours of rupture, third trimester; O99.62 Diseases of the digestive system complicating childbirth; K66.0 Peritoneal adhesions (postprocedural) (postinfection); O99.214 Obesity complicating childbirth; E66.01 Morbid (severe) obesity due to excess calories; O24.429 Gestational diabetes mellitus in childbirth, unspecified control; O13.4 Gestational [pregnancy-induced] hypertension without significant proteinuria, complicating childbirth; Z88.8 Allergy status to other drugs, medicaments and biological substances
CPT/HCPCS: 36415; 81001; 82565; 82803; 83615; 84112; 84450; 84460; 84550; 85014; 85018; 85025; 85461; 86592; 86850; 86870; 86900; 86901; 88307; 90472; 90715; G0378; J3490; J7060; J7121; J0330; J1170; J1885; J2250; J2270; J2704; J2765; J7120; U0003